=== PATIENT | female | born 1945 | race Caucasian/White ===

== ENCOUNTER 2017-06-07 09:32 | Emergency (ER) | payer MEDICARE, OTHER ==
[~2017-06-07] VITALS: Ht 160 cm; Wt 78.0 kg
[~2017-06-07 09:32] MED LIST: HYDR25TA PO; IBUP-2070 PO; METO50 PO; VALS1TAB2 PO
[2017-06-07] MEDS ORDERED: MECLIZINE HCL 25 MG TABLET PO ONE (10:30)
[2017-06-07] MEDS ORDERED: ACETAMINOPHEN 325 MG TABLET PO ONE (10:30)
[2017-06-07 10:52] VITALS: BP 148/82
== END 2017-06-07 11:04 | disposition home or self-care (01) ==
LOC: EMS 09:34
DX: H72.92 Unspecified perforation of tympanic membrane, left ear (principal); R42 Dizziness and giddiness; I10 Essential (primary) hypertension
CPT/HCPCS: 99283